=== PATIENT | female | born 1985 | race Caucasian/White ===

== ENCOUNTER 2016-07-25 08:53 | Emergency (ER) | payer OTHER ==
[2016-07-25 09:06] VITALS: BP 100/62
--- NOTE | 2016-07-25 09:20 | UC ---
Lower Extremity/Ankle HPI - HPI Summary HPI Summary: 31 YO FEMALE HIT HER RIGHT FOOT ON DOOR JAM YESTERDAY PAIN WITH WT BEARING CAN HEEL WALK - History of Current Complaint Chief Complaint: UCLowerExtremity Stated Complaint: FOOT INJURY Time Seen by Provider: 07/25/16 09:09 Hx Obtained From: Patient Hx Last Menstrual Period: 07/18/16 Onset/Duration: Sudden Onset Severity Initially: Moderate Severity Currently: Mild Pain Intensity: 1 - MARKEDLY INCREASED WITH ATTEMPTS AT [facility]ARING Pain Scale Used: 0-10 Numeric Aggravating Factor(s): Standing, Ambulation Alleviating Factor(s): Rest, Elevation Able to Bear Weight: Yes - Allergies/Home Medications Allergies/Adverse Reactions: Allergies Allergy/AdvReac Type Severity Reaction Status Date / Time No Known Allergies Allergy Verified 07/25/16 09:02 PMH/Surg Hx/FS Hx/Imm Hx Previously Healthy: Yes Endocrine History Of: Denies: Diabetes, Thyroid Disease Cardiovascular History Of: Denies: Cardiac Disorders, Hypertension Respiratory History Of: Denies: COPD, Asthma GI/ History Of: Reports: Ulcer Other History Of: Negative For: Anticoagulant Therapy - Surgical History Surgical History: None Surgery Procedure, Year, and Place: denies - Family History Known Family History: Positive: Cardiac Disease - GRANDPARENTS, Hypertension - GRANDPARENTS, Diabetes - GRANDPARENTS, Other - Denies [facility] for kidney stones Family History: no cardio-vascular disorders in her family - Social History Alcohol Use: Occasionally Substance Use Type: None Smoking Status (MU): Never Smoked Tobacco Have You Smoked in the Last Year: No - Immunization History Most Recent Influenza Vaccination: Never Most Recent Tetanus Shot: UTD Most Recent Pneumonia Vaccination: Never Review of Systems Constitutional: Negative Skin: Bruising Eyes: Negative ENT: Negative Respiratory: Negative Cardiovascular: Negative Gastrointestinal: Negative Genitourinary: Negative Motor: Negative Neurovascular: Negative Musculoskeletal: Arthralgia Neurological: Negative Psychological: Negative All Other Systems Reviewed And Are Negative: Yes Physical Exam Triage Information Reviewed: Yes Appearance: Well-Appearing, No Pain Distress, Well-Nourished Vital Signs: Initial Vital Signs Temp 98 F 07/25/16 09:02 Pulse 99 07/25/16 09:02 Resp 18 07/25/16 09:02 BP 100/62 07/25/16 09:02 Pulse Ox 100 07/25/16 09:02 Vital Signs Reviewed: Yes Eyes: Positive: Conjunctiva Clear ENT: Positive: Hearing grossly normal. Negative: Nasal congestion, Nasal drainage, Trismus, Muffled/hoarse voice Neck: Positive: Supple Respiratory: Positive: Lungs clear, Normal breath sounds, No respiratory distress, No accessory muscle use Cardiovascular: Positive: RRR, No Murmur Musculoskeletal: Positive: Other: - SEE IMAGE Neurological: Positive: Alert, Muscle Tone Normal Psychological Exam: Normal Skin: Negative: rashes Lower Extremity Course/Dx - Differential Dx/Diagnosis Provider Diagnoses: FRACTURE OF RIGHT LITTLE TOE (INTRA-ARTICULAR) INVOLVING BASE OF PROX PHALANX Discharge - Discharge Plan Condition: Stable Disposition: HOME Patient Education Materials: Toe Fracture (ED) Forms: *Work Release Referrals: Shy JO,Calli Ivey [Primary Care Provider] - 2 Weeks (RECHECK IN 2-3 WEEKS IF NOT BETTER) Additional Instructions: JOSE L TAPE POST OP SHOE ICE TWICE DAILY MOTRIN Images Feet (Multiple View): 1 - MOST PAINFUL 2 - SWOLLEN /ECCHYMOTIS 3 - TENDER MID FOOT WELL
--- NOTE | 2016-07-25 09:39 | RAD ---
Indication: RIGHT foot pain following stubbing injury. Pain and bruising lateral RIGHT foot. Comparison: None. Technique: AP, lateral, and oblique views RIGHT foot. Report: Grossly nondisplaced intra-articular fracture at the medial base of the fifth proximal phalanx. Negative for additional fracture. Normal articular alignment. Mild soft tissue swelling about the forefoot. IMPRESSION: Intra-articular fracture base of the fifth proximal phalanx.
== END 2016-07-25 10:07 | disposition home or self-care (01) ==
LOC: UCEAST 08:53
DX: S92.911A Unspecified fracture of right toe(s), initial encounter for closed fracture (principal); W22.8XXA Striking against or struck by other objects, initial encounter; Y92.9 Unspecified place or not applicable
CPT/HCPCS: 99213; G0463

== ENCOUNTER 2016-12-07 19:17 | Emergency (ER) | payer OTHER ==
[2016-12-07 19:22] VITALS: BP 122/71
--- NOTE | 2016-12-07 19:42 | UC ---
Complaint Female HPI - HPI Summary HPI Summary: Dysuria, frequency, urgency, hematuria starting yesterday. Was up all night having to use the bathroom. Sx are much improved this evening, but still having pain. No fevers, vomiting, or back pain. Denies vaginal sx or concerns for STIs. - History Of Current Complaint Chief Complaint: UCGU Stated Complaint: POSS UTI Time Seen by Provider: 12/07/16 19:21 Hx Obtained From: Patient Hx Last Menstrual Period: 11/26/16 ?: No Onset/Duration: Gradual Onset, Lasting Hours Timing: Constant Severity Initially: Moderate Severity Currently: Mild Character: Burning, Cramping Aggravating Factor(s): Urination Associated Signs And Symptoms: Negative: Fever, Back Pain, Vaginal Bleeding/ Discharge, Vaginal Discharge, Nausea, Vomiting(# Of Episodes =) - Allergies/Home Medications Allergies/Adverse Reactions: Allergies Allergy/AdvReac Type Severity Reaction Status Date / Time No Known Allergies Allergy Verified 12/07/16 19:22 PMH/Surg Hx/FS Hx/Imm Hx Previously Healthy: Yes Other History Of: Negative For: Anticoagulant Therapy - Surgical History Surgical History: None Surgery Procedure, Year, and Place: denies - Family History Known Family History: Positive: None, Cardiac Disease - GRANDPARENTS, Hypertension - GRANDPARENTS, Diabetes - GRANDPARENTS, Other - Denies [facility] for kidney stones Family History: no cardio-vascular disorders in her family - Social History Alcohol Use: Occasionally Substance Use Type: None Smoking Status (MU): Never Smoked Tobacco Have You Smoked in the Last Year: No - Immunization History Most Recent Influenza Vaccination: Never Most Recent Tetanus Shot: UTD Most Recent Pneumonia Vaccination: Never Review of Systems Constitutional: Negative Skin: Negative Eyes: Negative ENT: Negative Respiratory: Negative Cardiovascular: Negative Gastrointestinal: Negative Genitourinary: Dysuria, Hematuria, Frequency, Urgency Motor: Negative Neurovascular: Negative Musculoskeletal: Negative Neurological: Negative Psychological: Negative All Other Systems Reviewed And Are Negative: Yes Physical Exam Triage Information Reviewed: Yes Appearance: Well-Appearing, No Pain Distress, Well-Nourished Vital Signs: Initial Vital Signs Temp 98.8 F 12/07/16 19:19 Pulse 84 12/07/16 19:19 Resp 16 12/07/16 19:19 BP 122/71 12/07/16 19:19 Pulse Ox 100 12/07/16 19:19 Vital Signs Reviewed: Yes Eye Exam: Normal, Other - PERRL Eyes: Positive: Conjunctiva Clear ENT Exam: Normal ENT: Positive: Normal ENT inspection, Hearing grossly normal, Pharynx normal, TMs normal Dental Exam: Normal Neck exam: Normal Neck: Positive: Supple, Nontender, No Lymphadenopathy Respiratory Exam: Normal Respiratory: Positive: Chest non-tender, Lungs clear, Normal breath sounds, No respiratory distress, No accessory muscle use Cardiovascular Exam: Normal Cardiovascular: Positive: RRR, No Murmur Abdomen Description: Positive: Nontender, No Organomegaly. Negative: CVA Tenderness (R), CVA Tenderness (L) Musculoskeletal Exam: Normal Neurological Exam: Normal Neurological: Positive: Alert Psychological Exam: Normal Skin Exam: Normal Complaint Female Dx - Differential Dx/Diagnosis Provider Diagnoses: UTI Discharge - Discharge Plan Condition: Stable Disposition: HOME Prescriptions: Nitrofurantoin Monohyd Macro [Macrobid] 100 mg PO BID #10 cap Patient Education Materials: Urinary Tract Infection in Women (ED) Referrals: Shy JO,Calli Ivey [Primary Care Provider] - Additional Instructions: If you do not have marked improvement in the next 48 hours, or if you are worsening at any time, please call or return.
== END 2016-12-07 19:39 | disposition home or self-care (01) ==
LOC: UCEAST 19:17
DX: N39.0 Urinary tract infection, site not specified (principal)
CPT/HCPCS: 81003; 84702; 87086; 99212; G0463

== ENCOUNTER 2018-09-08 01:50 | Inpatient (IN) | payer OTHER ==
[2018-09-08] MEDS ORDERED: Buffered Lidocaine 1% SYRIN* 1 ML/SYRINGE INTRADERM ONE (02:54)
[2018-09-08] MEDS ORDERED: Lactated Ringers 1000 ML Bag* 1,000 ML IV ONE ×2 (02:54→04:05)
[2018-09-08] MEDS ORDERED: Lactated Ringers 1000 ML Bag* 1,000 ML IV SCH ×3 (03:00→20:00)
--- NOTE | 2018-09-08 03:01 | HP ---
General Information - Reason for Visit labor check - General Information Maternal Age: 33 Grav: 1 Para: 0 SAB: 0 IEA: 0 Estimated Due Date: 09/13/18 Determined By: LMP Gestational Age in Weeks/Days: 39w 2 d Maternal Blood Type and Rh: A Positive - Results this Serology/RPR Result: Non-Reactive Rubella Result: Immune HBsAg Result: Negative HIV Result: Negative GBS Culture Result: Negative Past Medical History Pertinent Past Medical History: Non-Contributory Pertinent Past Surgical History: None Pertinent Family History: Non-Contributory - Antepartal Records Antepartal Records: Reviewed, Uncomplicated Review of Systems Constitutional: Uncomfortable CV Complaint: No Respiratory: Shortness of Breath: No Gastrointestinal: Normal Bowel Movement, Nausea Genitourinary: Leaking Fluid Musculoskeletal: Contractions Neurological: No Headache, No Visual Changes Movement: Normal Exam Allergies/Adverse Reactions: Allergies No Known Allergies Allergy (Verified 12/07/16 19:22) Lab Values - Entire Visit: Laboratory Tests 09/08/18 02:00 Vag Amniotic Fld Detect Positive - Exam Breast: - - soft, no masses Extremities: Edema - trace Heart: Normal Rhythm/Heart Sounds HEENT: No Significant Findings Lungs: Clear Bilaterally Reflexes: DTR 2+ Thyroid: No Thyromegaly - Ultrasound/Biophysical Profile Ultrasound Status: Bedside Exam Ultrasound Findings: vertex presentation Targeted Exam Findings Estimated Weight: 8.5 lbs Cervical Exam: 1cm Effacement: 90% Station: High Presenting Part: Vertex Membrane Status: Leaking Amniotic Fluid Evaluation: Gross Rupture, Positive ROM Plus EFM Findings - External Monitor Findings Baseline Heart Rate: 125 External Monitor Findings: No Pattern of Variable or Late Decelerations, Variability Moderate, Baseline Stable Contractions: Regular, Moderate Contraction Frequency: every 2 min Assessment/Plan - Assessment primip in active labor - Plan Plan: Admit - Anticipate Vaginal Delivery Plan Comment: nyasia epidural - Date/Time of Admission Date of Admission: 09/08/18 Time of Admission: 03:03
[2018-09-08] MEDS ORDERED: OBEPIDURAL* 250 ML EPIDURAL ONE (03:29)
[2018-09-08 03:41] LABS: Hematocrit 36 % (35-47); Hemoglobin 11.7 g/dL (12.0-16.0); Mean Corpuscular HGB Conc 33 g/dL (31-36); Mean Corpuscular Hemoglobin 27 pg (27-31); Mean Corpuscular Volume 82 fL (80-97); Platelet Count 185 10^3/uL (150-450); Red Blood Count 4.34 10^6 /uL (3.70-4.87); Red Cell Distribution Width 15 % (10.5-15); White Blood Count 21.6 10^3/uL (3.5-10.8)
[2018-09-08] MEDS ORDERED: Phenylephrine 40 MCG/ML SYRINGE IV PUSH PRN ×2 (04:05)
[2018-09-08] MEDS ORDERED: EPHEDrine (Pressors)* 50 MG/ML VIAL IV PUSH PRN ×2 (04:05)
[2018-09-08] MEDS ORDERED: Famotidine TAB* 20 MG PO PRN (04:05)
[2018-09-08] MEDS ORDERED: Sodium Citrate/Citric Acid* 15 ML UDC PO PRN (04:05)
[2018-09-08] MEDS ORDERED: OBEPIDURAL* 250 ML EPIDURAL SCH (05:00)
--- NOTE | 2018-09-08 09:37 | PN ---
Progress Note - Progress Note Date of Service: 09/08/18 Note: s: feeling comfortable with epidural. Reports she has been unable to feel UCs. o: B/P: 117/69, P: 78, R: 20, T: 99.0 FHR: baseline 120, moderate variability, + accelerations, no decelerations UCs: q2-4 min, moderate to palpation VE: 3/90/-2, scant clear fluid a: IUP at 39 2/7 weeks Category I FHR, no evidence of metabolic acidemia Early active labor P: Reassess in 3-4 hrs or sooner as indicated
--- NOTE | 2018-09-08 13:31 | PN ---
Progress Note - Progress Note Date of Service: 09/08/18 Note: S: Reports feeling more pressure with UCs, general discomfort. Family at bedside for support O: B/P: 139/81, P: 87, R: 20, T: 98.6 FHR: baseline 120, variability moderate with brief periods of minimal variability, + accelerations, occasional early decelerations UCs: q2-4 min, moderate VE: 7.5/100/-1, scant clear to pink fluid A: IUP at 39 2/7 weeks Category II FHR, doubt metabolic acidemia Active labor P: Repositioned by RN for comfort Reassess in 1-2 hrs or PRN
[2018-09-08] MEDS ORDERED: Oxytocin in LR* 20 UNITS/1,000 ML BAG IVPB ONE (16:33)
[2018-09-08] MEDS ORDERED: Oxytocin in LR* 20 UNITS/1,000 ML BAG IVPB SCH ×2 (17:00→20:00)
--- NOTE | 2018-09-08 18:03 | PN ---
Progress Note - Progress Note Date of Service: 09/08/18 Note: S: Patient has been pushing for 2.5 hrs, reports fatigue. O: B/P: 129/79, P: 89, R: 20, T: 100.0 FHR: baseline 140, minimal variability, early decelerations with pushing UCs: q2-4 min Baby still at -1 station A: IUP at 39 2/7 weeks Category II FHR, doubt metabolic acidemia Vertex not descending with pushing P: Dr. Bentley consulted, recommends . Pt in agreement.
[2018-09-08] MEDS ORDERED: ceFOXitin 2 GM IVPREMIX* 2 GM/50 ML BAG ONE (18:04)
[2018-09-08] MEDS ORDERED: ceFOXitin 2 GM IVPREMIX* 2 GM/50 ML BAG IVPB ONE (18:06)
[2018-09-08] MEDS ORDERED: Sodium Citrate/Citric Acid* 15 ML UDC PO ONE (18:06)
[2018-09-08] MEDS ORDERED: Sodium Citrate/Citric Acid* 15 ML UDC ONE (18:12)
[2018-09-08] MEDS ORDERED: OXYTOCIN* 10 UNITS/ML 1 ML VIAL ONE (19:13)
[2018-09-08] MEDS ORDERED: Lidocaine 2% PF* 10 ML AMP ONE (19:13)
[2018-09-08] MEDS ORDERED: DiMENhydriNATE IV* 50 MG/ML VIAL IV PUSH PRN ×2 (19:22→19:23)
[2018-09-08] MEDS ORDERED: Naloxone* 0.4 MG/ML 1 ML VIAL IV PRN ×2 (19:22→19:23)
[2018-09-08] MEDS ORDERED: Ondansetron INJ* 2 MG/ML VIAL IV PRN ×2 (19:22→19:23)
[2018-09-08] MEDS ORDERED: diPHENhydraMINE IV* 50 MG/ML 1 ml VIAL (BENADRYL) IV PRN (19:23)
[2018-09-08] MEDS ORDERED: Nalbuphine* 10 MG/ML 1 ML VIAL IV PRN (19:23)
[2018-09-08] MEDS ORDERED: Scopolamine 1.5 mg* PATCH TRANSDERM PRN (19:23)
[2018-09-08] MEDS ORDERED: Morphine PF AMP (0.5MG/ML)* 5 MG/10 ML AMP ONE (19:26)
[2018-09-08] MEDS ORDERED: Ibuprofen TAB* 600 MG PO PRN (19:38)
[2018-09-08] MEDS ORDERED: Glycerin ADULT SUPP PR PRN (19:38)
[2018-09-08] MEDS ORDERED: Acetaminophen TAB* 325 MG PO PRN (19:38)
[2018-09-08] MEDS ORDERED: Zolpidem TAB* 5 MG PO PRN (19:38)
[2018-09-08] MEDS ORDERED: Dibucaine 1% 28.35 GM TUBE PR PRN (19:38)
[2018-09-08] MEDS ORDERED: Witch Hazel PAD* JAR TOPICAL PRN (19:38)
[2018-09-08] MEDS: fentaNYL* 50 MCG/ML 2 ML VIAL (100 MCG VIAL) IV PRN ×4 (20:14→20:46)
[2018-09-08] MEDS: oxyCODONE/Acetamin 5/325 MG* TAB PO PRN (22:13)
[2018-09-08] MEDS: Docusate CAP* 100 MG PO SCH (23:05)
[2018-09-08] MEDS: Simethicone TAB* 80 MG TAB.CHEW PO SCH (23:05)
[2018-09-09] MEDS: Ketorolac INJ* 30 MG/ML 1 ML VIAL IV PRN ×3 (01:21→13:57)
[2018-09-09] MEDS: oxyCODONE/Acetamin 5/325 MG* TAB PO PRN ×5 (01:21→20:19)
--- NOTE | 2018-09-09 01:50 | OP ---
AMENDED REPORT NOW INCLUDES DATE OF OPERATION - ESIGNED BEFORE ADJUSTMENT * DATE OF OPERATION: 09/08/18 - ROOM #101 DATE OF : 89 SURGEON: Lamont Bentley MD ASSISTANTS: Dr. Waite; Charlotte Arnold CNM ANESTHESIA: Spinal. PRE-OP DIAGNOSES: Arrest of descent. POST-OP DIAGNOSIS: Arrest of descent plus meconium. OPERATIVE PROCEDURE: Low transverse section. ESTIMATED BLOOD LOSS: 800 cc. FINDINGS: Include a viable male, Apgars 9 and 9. The weight was 8 pounds 6 ounces. Normal appearing uterus, fallopian tubes, and ovaries. DESCRIPTION OF PROCEDURE: The patient was identified, procedure identified as a low-transverse section. The patient was taken to the operating room , prepped and draped in the usual fashion in left lateral recumbent position under epidural anesthesia. A Pfannenstiel incision made in the abdomen and carried down through fat, fascia, and peritoneum. A transverse incision was made in the lower uterine segment and extended laterally using blunt dissection. The above was delivered through the incision with ease. The cord was doubly clamped and cut. The infant was handed to the awaiting machine repairer. Cord blood was obtained. Placenta delivered spontaneously. The uterus was wiped out with a wet lap sponge. The uterus was then closed with 0 Polysorb in a running fashion. A second layer was used to imbricate the first layer in a running fashion. Hemostasis was verified. Uterus was placed back in the abdominal cavity. Gutters were wiped out with a wet lap sponge. Good hemostasis was verified in the intraperitoneal space. The peritoneum was then closed using 3-0 Polysorb in a running fashion. Good hemostasis achieved in the subrectus layers. The fascia was closed using 0 Polysorb in a running fashion. Hemostasis was achieved in the subcu. Copious irrigation was utilized and suctioned out. The skin was closed with 4-0 Monocryl in a subcuticular fashion. All sponge and instrument counts were correct. The patient returned to the recovery room in stable condition. [id number]/[facility] #: [id number] [facility] CENTERChristophe
[2018-09-09] MEDS: Simethicone TAB* 80 MG TAB.CHEW PO SCH ×4 (08:09→20:19)
[2018-09-09] MEDS: Docusate CAP* 100 MG PO SCH ×3 (08:09→20:19)
[2018-09-09 08:19] LABS: Hematocrit 32 % (35-47); Hemoglobin 10.6 g/dL (12.0-16.0); Mean Corpuscular HGB Conc 33 g/dL (31-36); Mean Corpuscular Hemoglobin 27 pg (27-31); Mean Corpuscular Volume 82 fL (80-97); Mean Platelet Volume 10.7 fL (7.4-10.4); Platelet Count 159 10^3/uL (150-450); Red Blood Count 3.93 10^6 /uL (3.70-4.87); Red Cell Distribution Width 15 % (10.5-15); White Blood Count 25.9 10^3/uL (3.5-10.8)
[2018-09-09] MEDS ORDERED: Ferrous Gluconate TAB* 324 MG TAB PO SCH (09:00)
[2018-09-09 09:38] LABS: ABS Basophils 0.1 10^3/ul (0-0.2); ABS Eosinophils 0.1 10^3/ul (0-0.6); ABS Lymphocytes 2.7 10^3/ul (1.0-4.8); ABS Monocytes 2.2 10^3/ul (0-0.8); ABS Neutrophils 20.9 10^3/ul (1.5-7.7); Eosinophil % 0.2 %; Lymphocyte % 10.6 %
[2018-09-09] MEDS ORDERED: oxyCODONE/Acetamin 5/325 MG* TAB PO PRN (11:30)
[2018-09-10] MEDS: oxyCODONE/Acetamin 5/325 MG* TAB PO PRN ×5 (00:18→21:40)
[2018-09-10] MEDS: Ibuprofen TAB* 600 MG PO PRN ×3 (05:00→17:30)
[2018-09-10] MEDS: Simethicone TAB* 80 MG TAB.CHEW PO SCH ×4 (09:09→21:40)
[2018-09-10] MEDS: Docusate CAP* 100 MG PO SCH ×3 (09:09→21:40)
[2018-09-11] MEDS: Ibuprofen TAB* 600 MG PO PRN ×2 (01:07→09:11)
[2018-09-11] MEDS: oxyCODONE/Acetamin 5/325 MG* TAB PO PRN ×2 (01:07→05:48)
[2018-09-11] MEDS: Docusate CAP* 100 MG PO SCH (09:11)
[2018-09-11] MEDS: Simethicone TAB* 80 MG TAB.CHEW PO SCH (09:11)
[2018-09-11 09:33] VITALS: BP 118/69
[2018-09-11] MEDS ORDERED: Scopolamine PATCH Remove* 1 NOTE MISC PATCH OFF PRN (19:25)
== END 2018-09-11 12:21 | disposition home or self-care (01) | DRG 540 ==
LOC: MCHOBOUT 01:50 → MCHOB 02:34
PROVIDERS: ADMIT Obstetrics & Gynecology; ATTEND Obstetrics & Gynecology
PROC: 10D00Z1 Extraction of Products of Conception, Low, Open Approach (ICD-10-PCS; principal; 2018-09-08 18:36)
DX: O32.4XX0 Maternal care for high head at term, not applicable or unspecified (principal); O77.0 Labor and delivery complicated by meconium in amniotic fluid; Z3A.39 39 weeks gestation of pregnancy; Z37.0 Single live birth
CPT/HCPCS: 36415; 76815; 84112; 85025; 85027; 86850; 86900; 86901; A9270-GY; J0694; J1885; J2001; J2590; J3010